=== PATIENT | female | born 1990 | race Caucasian/White ===

== ENCOUNTER 2021-05-21 11:05 | Inpatient (IN) | payer OTHER ==
[2021-05-21 12:10] LABS: BILIRUBIN NEGATIVE (NEGATIVE); BLOOD TRACE-INTACT Ery/uL (NEGATIVE); CLARITY HAZY (CLEAR); COLOR YELLOW (YELLOW); GLUCOSE (U) NORMAL (NORMAL); LEUKOCYTES TRACE Leu/uL (NEGATIVE); NITRITE NEGATIVE (NEGATIVE); PROTEIN TRACE (LOW) mg/dL (NEGATIVE)
[2021-05-21 12:17] LABS: BACTERIA 3+; MUCOUS TRACE
[2021-05-21 12:23] LABS: HCT 36.8 % (37.0-47.0); HGB 12.2 g/dl (12.5-16.0); MCHC 33.2 g/dL (32.0-36.0); MCV 87.6 fL (78.0-100.0); MPV 11.3 fL (6.0-9.5); RBC 4.2 M/uL (4.20-5.40); RDW 13.1 % (11.5-14.0); WBC 7.2 K/uL (4.0-10.5)
[2021-05-21 12:39] LABS: ALBUMIN 2.4 g/dL (3.4-5.0); BILIRUBIN - TOTAL 0.4 mg/dL (0.2-1.0); BUN/CREAT RATIO (CALC) 9.8 RATIO; CREATININE 0.61 mg/dL (0.51-0.95); GLOBULIN (CALCULATION) 4.3 g/dL; POTASSIUM 3.8 mmol/L (3.5-5.1); TOTAL PROTEIN 6.7 g/dL (6.4-8.2)
[2021-05-21 14:42] LABS: PROTEIN:CREATININE 0.13 RATIO; URINE CREATININE 284.41 mg/dL (29.00-226.00)
[2021-05-22 00:12] LABS: BILIRUBIN NEGATIVE (NEGATIVE); BLOOD NEGATIVE Ery/uL (NEGATIVE); CLARITY CLEAR (CLEAR); COLOR YELLOW (YELLOW); GLUCOSE (U) NORMAL (NORMAL); LEUKOCYTES NEGATIVE Leu/uL (NEGATIVE); NITRITE NEGATIVE (NEGATIVE); PROTEIN NEGATIVE (NEGATIVE); SPECIFIC GRAVITY >=1.030 (1.001-1.030); UROBILINOGEN 0.2 mg/dL (0.2-1.0)
[2021-05-22 06:20] LABS: HCT 34.1 % (37.0-47.0); HGB 11.3 g/dl (12.5-16.0); MCH 29.7 pg (25.0-31.0); MCHC 33.1 g/dL (32.0-36.0); MCV 89.5 fL (78.0-100.0); MPV 11.4 fL (6.0-9.5); RBC 3.81 M/uL (4.20-5.40); RDW 13.1 % (11.5-14.0)
[2021-05-22 06:22] LABS: WBC 12.9 K/uL (4.0-10.5)
== END 2021-05-23 20:31 | disposition home or self-care (01) | DRG 787 ==
LOC: FOD 11:05 → FOB 11:06 → FOD 14:43 → FOB 14:44
PROVIDERS: ADMIT Specialist
PROC: 10D00Z1 Extraction of Products of Conception, Low, Open Approach (ICD-10-PCS; principal; 2021-05-21 22:00)
DX: O34.211 Maternal care for low transverse scar from previous cesarean delivery (principal); O41.03X0 Oligohydramnios, third trimester, not applicable or unspecified; O98.32 Other infections with a predominantly sexual mode of transmission complicating childbirth; Z37.0 Single live birth; O36.5930 Maternal care for other known or suspected poor fetal growth, third trimester, not applicable or unspecified; O99.214 Obesity complicating childbirth; O69.81X0 Labor and delivery complicated by cord around neck, without compression, not applicable or unspecified; Z3A.39 39 weeks gestation of pregnancy; A60.00 Herpesviral infection of urogenital system, unspecified
CPT/HCPCS: 36415; 80053; 81001; 81003; 82570; 83615; 84156; 86850; 86900; 86901; J0690; J1200; J1885; J2274; J2300; J2405; J7120; U0002